=== PATIENT | male | born 1940 | race Caucasian/White ===

== ENCOUNTER 2017-01-24 12:52 | Day surgery (SDC) | payer MEDICARE | END 2017-01-24 13:55 | disposition short-term general hospital (02) | LOC: SURGOP 12:52 | PROC: 0TJB8ZZ Inspection of Bladder, Via Natural or Artificial Opening Endoscopic (ICD-10-PCS; principal; 2017-01-24) | DX: Z08 Encounter for follow-up examination after completed treatment for malignant neoplasm (principal) ==

== ENCOUNTER → 2017-02-06 | Outpatient (CLI) | payer MEDICARE | END | disposition short-term general hospital (02) | LOC: CLONCO 10:12 | DX: D69.3 Immune thrombocytopenic purpura (principal) ==

== ENCOUNTER → 2017-03-06 | Outpatient (CLI) | payer MEDICARE | END | disposition short-term general hospital (02) | LOC: CLONCO 07:11 | DX: D69.3 Immune thrombocytopenic purpura (principal) ==

== ENCOUNTER → 2017-03-10 | Outpatient (CLI) | payer MEDICARE | END | disposition short-term general hospital (02) | LOC: CLCARD 09:09 | DX: I25.10 Atherosclerotic heart disease of native coronary artery without angina pectoris (principal); I48.0 Paroxysmal atrial fibrillation; I42.2 Other hypertrophic cardiomyopathy; G47.30 Sleep apnea, unspecified; E78.5 Hyperlipidemia, unspecified; E66.9 Obesity, unspecified; D69.3 Immune thrombocytopenic purpura; D46.9 Myelodysplastic syndrome, unspecified; I44.0 Atrioventricular block, first degree; I51.7 Cardiomegaly; R94.31 Abnormal electrocardiogram [ECG] [EKG]; Z95.5 Presence of coronary angioplasty implant and graft ==

== ENCOUNTER → 2017-04-11 | Outpatient (CLI) | payer MEDICARE | END | disposition short-term general hospital (02) | LOC: CLONCO 05:09 | DX: D46.9 Myelodysplastic syndrome, unspecified (principal); D69.3 Immune thrombocytopenic purpura; R53.83 Other fatigue ==